=== PATIENT | female | born 1965 | race Caucasian/White ===

== ENCOUNTER → 2019-09-02 | Outpatient (CLI) | payer OTHER ==
[~2019-09-02] MED LIST: CLARITIN10 MG PO; HYDROCODON-ACE1 EAC7 PO; LOPREEZA 1 MG-1 EACH; NEPHROCAPS SOFT1 CAP PO; NEXIUM40 MG PO; UNICOMPLEX M TA1 TA1 PO; VENLAFAXINE HCL75 M2 PO; VENTOLIN HFA 1818 GM INH; VITAMIN D1000 UNI1 PO; WELLBUTRIN 75 M75 M1 PO
== END ==
LOC: M.MRI 11:20
DX: R42 Dizziness and giddiness (principal); K21.9 Gastro-esophageal reflux disease without esophagitis

== ENCOUNTER → 2019-12-16 | Outpatient (CLI) | payer OTHER | LOC: M.RAD 11:00 | DX: K21.9 Gastro-esophageal reflux disease without esophagitis (principal); R10.13 Epigastric pain; R42 Dizziness and giddiness; M46.02 Spinal enthesopathy, cervical region; M50.20 Other cervical disc displacement, unspecified cervical region ==